=== PATIENT | male | born 1950 | race Caucasian/White ===

== ENCOUNTER 2022-09-19 14:57 | Outpatient (OUT) | payer MEDICARE, SELFPAY | END 2022-09-19 14:58 | LOC: WC 14:57 | DX: T87.89 Other complications of amputation stump (principal) | CPT/HCPCS: 29445 ==

== ENCOUNTER 2022-09-26 09:00 | Outpatient (OUT) | payer MEDICARE, SELFPAY | END 2022-09-26 09:01 | LOC: WC 09:00 | PROVIDERS: Visit Provider Podiatrist Foot & Ankle Surgery | DX: T87.89 Other complications of amputation stump (principal) | CPT/HCPCS: 99212; A6213; G0463 ==

== ENCOUNTER 2022-10-20 08:39 | Outpatient (OUT) | payer MEDICARE, SELFPAY | END 2022-10-20 08:40 | disposition home or self-care (01) | LOC: WC 08:39 | PROVIDERS: Visit Provider Podiatrist Foot & Ankle Surgery | DX: T87.89 Other complications of amputation stump (principal) | CPT/HCPCS: G0463 ==

== ENCOUNTER 2022-12-01 08:56 | Outpatient (OUT) | payer MEDICARE, SELFPAY | END 2022-12-01 08:57 | disposition home or self-care (01) | LOC: WC 08:56 | PROVIDERS: Visit Provider Podiatrist Foot & Ankle Surgery | DX: I96 Gangrene, not elsewhere classified (principal); T87.89 Other complications of amputation stump | CPT/HCPCS: G0463 ==

== ENCOUNTER 2022-12-08 16:07 | Outpatient (RCR) | payer MEDICARE, SELFPAY | END 2023-02-01 13:16 | disposition home or self-care (01) | LOC: PT 16:07 | PROVIDERS: Visit Provider Podiatrist Foot & Ankle Surgery | DX: R26.9 Unspecified abnormalities of gait and mobility (principal); Z91.81 History of falling; Z89.431 Acquired absence of right foot | CPT/HCPCS: 97110; 97112; 97161 ==

== ENCOUNTER 2023-05-25 10:23 | Outpatient (OUT) | payer MEDICARE, SELFPAY | END 2023-05-25 10:24 | disposition home or self-care (01) | LOC: WC 10:23 | PROVIDERS: Visit Provider Podiatrist Foot & Ankle Surgery | DX: E11.21 Type 2 diabetes mellitus with diabetic nephropathy (principal); M10.9 Gout, unspecified; I82.431 Acute embolism and thrombosis of right popliteal vein; E11.65 Type 2 diabetes mellitus with hyperglycemia; M86.642 Other chronic osteomyelitis, left hand; E11.69 Type 2 diabetes mellitus with other specified complication | CPT/HCPCS: G0463 ==

== ENCOUNTER 2023-11-21 12:23 | Outpatient (RCR) | payer MEDICARE, SELFPAY | END 2023-12-27 16:11 | disposition home or self-care (01) | LOC: PT 12:23 | PROVIDERS: Visit Provider Nurse Practitioner Family | DX: G20.A1 Parkinson's disease without dyskinesia, without mention of fluctuations (principal); E11.42 Type 2 diabetes mellitus with diabetic polyneuropathy; M51.36 Other intervertebral disc degeneration, lumbar region | CPT/HCPCS: 97110; 97112; 97162 ==

== ENCOUNTER 2024-04-22 11:51 | Outpatient (OUT) | payer MEDICARE, SELFPAY ==
--- NOTE | 2024-04-22 11:56 | XR_ITS ---
The [address] [address] Patient Name: CANDELARIO ARRIOLA MRN: [id number] date: 1950 Sex: M Assigned Patient Location: [facility] Current Patient Location: Accession/Order Number: [id number] Exam Date: 04/22/2024 12:35 Report Date: 04/23/2024 06:46 At the request of: RANDAL LÓPEZ Procedure: XR foot RT min 3V PROCEDURE: XR foot RT min 3V HISTORY: Foot Pain COMPARISON: XR foot right 08/28/2022 FINDINGS: BONES:Prior amputation of the forefoot at the level of the mid metatarsals. No suspicious osseous changes. SOFT TISSUES:Soft tissue swelling surrounding the distal foot. Atherosclerotic disease. EFFUSION:None visible. OTHER: Negative. XR/XR foot RT min 3V IMPRESSION: 1. Postoperative amputation of forefoot. No acute findings. Electronically authenticated by: WHIT PEDERSON Date: 04/23/2024 06:46
== END 2024-04-22 11:52 | disposition home or self-care (01) ==
LOC: RAD 11:51
PROVIDERS: Visit Provider Podiatrist Foot & Ankle Surgery
DX: M79.671 Pain in right foot (principal); Z89.431 Acquired absence of right foot
CPT/HCPCS: 73630